=== PATIENT | male | born 1980 | race African-American/Black ===

== ENCOUNTER 2021-08-01 10:02 | Emergency (ER) | payer OTHER ==
[~2021-08-01] VITALS: Ht 180.3 cm; Wt 136.1 kg
[2021-08-01 13:14] VITALS: BP 146/99; TEMP 97.7
== END 2021-08-01 13:10 | disposition home or self-care (01) ==
LOC: ED 10:02
DX: S29.012A Strain of muscle and tendon of back wall of thorax, initial encounter (principal); W13.2XXA Fall from, out of or through roof, initial encounter; Y92.098 Other place in other non-institutional residence as the place of occurrence of the external cause
CPT/HCPCS: 36415; 96374; 96375; 96376; 99284; J1885; J2270

== ENCOUNTER 2021-10-11 09:46 | Emergency (ER) | payer OTHER ==
[~2021-10-11] VITALS: Ht 180.3 cm; Wt 136.1 kg
[2021-10-11 10:50] VITALS: BP 147/93; TEMP 97.7
== END 2021-10-11 10:50 | disposition home or self-care (01) ==
LOC: ED 09:46
DX: H65.192 Other acute nonsuppurative otitis media, left ear (principal); I10 Essential (primary) hypertension; F17.210 Nicotine dependence, cigarettes, uncomplicated
CPT/HCPCS: 99282

== ENCOUNTER 2022-01-28 12:55 | Emergency (ER) | payer OTHER ==
[~2022-01-28] VITALS: Ht 180.3 cm; Wt 149.7 kg
[2022-01-28 13:06] VITALS: TEMP 98.6
[2022-01-28] MEDS ORDERED: CYCL10TA35 PO (13:39)
[2022-01-28 14:45] VITALS: BP 135/100
== END 2022-01-28 14:45 | disposition home or self-care (01) ==
LOC: ED 12:55
DX: S20.221A Contusion of right back wall of thorax, initial encounter (principal); W20.8XXA Other cause of strike by thrown, projected or falling object, initial encounter; Y92.89 Other specified places as the place of occurrence of the external cause
CPT/HCPCS: 94664; 96372; 99283; J1885